=== PATIENT | female | born 1980 | race Native Hawaiian/Other Pacific Islander ===

== ENCOUNTER 2018-06-03 20:28 | Outpatient (CLI) | payer BC ==
[~2018-06-03 20:28] MED LIST: ADIPEX PO; HYDR25TA60 PO
== END 2018-06-03 23:08 | disposition home or self-care (01) ==
LOC: LABW 20:28
DX: Z79.899 Other long term (current) drug therapy (principal)
CPT/HCPCS: 36415; 82542